=== PATIENT | female | born 1985 | race American Indian/Alaskan Native ===

== ENCOUNTER 2017-02-13 22:14 | Emergency (ER) | payer SELFPAY ==
[2017-02-13 22:20] VITALS: BP 136/87
[2017-02-13] MEDS ORDERED: MOTRIN PO ONE (22:38)
--- NOTE | 2017-02-13 23:15 | Emergency Department Report ---
Upper Extremity - HPI Chief Complaint: Extremity Injury, Upper Stated Complaint: RIGHT HAND PAIN Time Seen by Provider: 02/13/17 23:14 Upper Extremity: Right Hand (pain and swelling), Right Thumb (pain and swelling) Occurred When: Today Mechanism: Fall Severity: severe Symptoms: Yes Pain with Movement (right thumb), Yes Limited Range of Movement ( right thumb), Yes Swelling (right thumb), No Deformity, No Numbness, No Weakness , No Bruising/Ecchymosis, No Laceration or Abrasion Other History: Patient reports that she was at a friend's have any get-together and she accidentally tripped on shoe draining. She says she fell on her right hand and she is having swelling and pain with limited movement to her right thumb. She denies any numbness or tingling. She denies any restriction in movement to other fingers and right hand. Denies any pain radiating from her thumb to her hand and beyond. Denies any head injury, headache, blurred vision. Denies any back or neck pain. ED Review of Systems ROS: Stated complaint: RIGHT HAND PAIN Other details as noted in HPI Comment: All other systems reviewed and negative Constitutional: no symptoms reported ENT: denies: ear pain, throat pain, hearing loss Respiratory: no symptoms reported Cardiovascular: denies: chest pain, palpitations, edema, syncope Gastrointestinal: denies: abdominal pain, nausea, vomiting, diarrhea Musculoskeletal: joint swelling, arthralgia, other (limited movement to right thumb). denies: back pain, myalgia Skin: denies: rash Neurological: denies: headache, weakness, numbness, paresthesias, confusion, abnormal gait, vertigo ED Past Medical Hx - Past Medical History Previous Medical History?: No Hx Psychiatric Treatment: Yes - Surgical History Past Surgical History?: Yes Hx Cholecystectomy: Yes Additional Surgical History: right shoulder - Family History Family history: no significant - Social History Smoking Status: Never Smoker Substance Use Type: None, Alcohol - Medications Home Medications: Home Medications Medication Instructions Recorded Confirmed Last Taken Type Acetaminophen/Codeine [Tylenol 1 tab PO Q6H PRN 3 Days #12 tab 02/14/17 Unknown Rx /Codeine # 3 tab] Ibuprofen [Motrin] 600 mg PO Q8H PRN 5 Days #15 tablet 02/14/17 Unknown Rx Upper Extremity Exam - Exam General: Vital signs noted. No distress. Alert and acting appropriately. This is a 31-year-old female well-nourished well-developed in no acute distress. Patient is nontoxic in appearance. Head and Torso: Yes HEENT Abnormality (normal exam), Yes Neck Tenderness ( normal exam), Yes Chest/Lungs Abnormality (normal exam), Yes Abdominal Tenderness (normal exam), Yes Back Tenderness (normal inspection, no vertebral or paraspinal tenderness. Patient able to ambulate without any difficulties) Shoulder Exam: Yes Shoulder Tenderness, Yes Normal Range of Motion in Shoulder, No Clavicle Tenderness, No Shoulder Deformity, No AC Joint Tenderness Arm Exam: No Arm/Humerus Tenderness, No Arm Deformity Elbow: Yes Normal Range of Motion in Elbow, No Elbow Tenderness, No Elbow Deformity Forearm: No Forearm Tenderness, No Forearm Deformity, No Pain with Pronation, No Pain with Supination Wrist: Yes Normal ROM in Wrist, Yes Pain with Axial Thumb Compression (right thumb), No Wrist Tenderness, No Wrist Deformity, No Snuffbox Tenderness Hand: Yes Hand Tenderness (right mid to proximal thumb), Yes Digit Tenderness ( right mid to proximal thumb), No Hand Deformity, No Normal ROM in Digit(s) (is limited range of motion to right thumb. She is able to move all fingers of without any pain but complains of pain with movement to right thumb.), No Digit( s) Deformity, No Tendon Dysfunction (no signs of tendon injury.) CMS Exam: Yes Normal Distal Pulses, Yes Normal Capillary Refill, Yes Normal Distal Sensation, No Broken Skin ED Course Vital Signs 02/13/17 02/13/17 22:17 22:53 Temperature 98.6 F Pulse Rate 108 H Respiratory 20 18 Rate Blood Pressure 136/87 O2 Sat by Pulse 99 Oximetry Vital Signs 02/13/17 02/13/17 02/14/17 22:17 22:53 00:29 Temperature 98.6 F Pulse Rate 108 H Respiratory 20 18 18 Rate Blood Pressure 136/87 O2 Sat by Pulse 99 Oximetry Vital Signs 02/13/17 02/13/17 02/14/17 22:17 22:53 00:29 Temperature 98.6 F Pulse Rate 108 H Respiratory 20 18 18 Rate Blood Pressure 136/87 O2 Sat by Pulse 99 Oximetry 02/14/17 00:40 Temperature Pulse Rate 92 H Respiratory Rate Blood Pressure O2 Sat by Pulse Oximetry - Reevaluation(s) Reevaluation #1: 11/19/17 01:01 Patient given Motrin 800 mg iinitially but she said it didn't help her pain. He was given an additional 5/325 mg 2 tablets by mouth. Which helped her pain. Patient with obvious soft tissue swelling to right thumb. This is noted on exam with severe pain with movement of thumb and with palpation. She does not have any bony abnormality that I can see. Attending physicians in emergency room reviewed x-ray of the hand 3 views soft tissue swelling was noted but radiology reports no bony abnormality to include fracture or dislocation and no soft tissue swelling. I called [facility] to ask that the radiologist do a reread on x-ray of the right hand [address] Faye. He reported in his addend them that x-ray of right hand normal without any bony abnormality to include fracture or dislocation and no soft tissue swelling. Patient with significant pain to right thumb, limited movement and obvious swelling. Reevaluation #2: 02/14/17 01:05 Patient's to have thumb spica and this was discussed with Dr. Ho and referred to Dr. Garcia for evaluation. See procedure note for details. As discussed patient and she agrees. Told her that she needs to keep thumb spica on and so she see orthopedic doctor for evaluation. - Orthopedic Splinting/Casting Injury #1 Side: right Upper Extremity Injury Location: hand, finger (right thumb) Upper Extremity Immobilizer: thumb spica Additional Comments: Patient with good color, sensation, temperature status post thumb spica placement. She said her pain is better ED Medical Decision Making - Radiology Data Radiology results: report reviewed X-ray of right hand reveal a normal study. Radiologist report no fracture or dislocation. Also report joint spaces appear normal. Reports that soft tissues are unremarkable. Addendum also suggests similar findings. - Medical Decision Making ED course: Patient status post ground-level fall which she said was accidental and injured her right thumb. She is complaining of severe pain to right femoral limited movement. Physical findings for swelling to mid to proximal right thumb with limitation in movement. She has normal sensation. Pulses are 2+ and bounding. All other extremities are normal. Patient with significant pain with palpation. X-ray 3 view of right hand revealed no fracture, no dislocation and no soft tissue swelling. Radiology interprets x-ray as normal study. Soft tissue swelling seen on x-ray of right hand on the thumb side. The attending physicians in the emergency room reviewed x-ray and it was agreed upon that the patient does have soft tissue swelling. I called and asked for a reread on x-ray and addendum report normal study and similar findings. Patient was given Motrin 600 mg for pain which didn't help her. She was given [place] 5/ 325 2 tablets by mouth which helped her pain. Patient with thumb spica to right hand with good post-splint neurological check. It was decided by attending physician that patient should have thumb spica and follow-up with Dr. Garcia was orthopedic doctor. It was explained to patient in detail that she should keep splint on until she is seen by orthopedic doctor. Patient will be discharged home on pain medication. I explained Rice protocol to her. Patient discharged home with family members in stable condition with prescription for Tylenol 3, Motrin and to follow-up with Dr. Garcia on 01/15/2017. He was understanding the discharge instructions, diagnoses and treatment plan. Critical care attestation.: If time is entered above; I have spent that time in minutes in the direct care of this critically ill patient, excluding procedure time. ED Disposition Clinical Impression: Fall from ground level, Pain of right thumb Contusion of right thumb Qualifiers: Encounter type: initial encounter Damage to nail status: without damage Qualified Code(s): S60.011A - Contusion of right thumb without damage to nail, initial encounter Disposition: DC-01 TO HOME OR SELFCARE Is pt being admited?: No Does the pt Need Aspirin: No Condition: Stable Instructions: Finger Sprain (ED), Splint Care (ED), Fall Prevention (ED), Contusion in Adults (ED), RICE Therapy (ED) Additional Instructions: Take medication as prescribed . please do not drive or operate heavy machinery while taking Tylenol No. 3 as this medication causes drowsiness. Referred to discharge instruction on splint care. Referred to discharge instruction in Rice therapy. Reason me almost splint until he is seen by orthopedic doctor These follow-up with orthopedic doctor as instructed. Please keep affected area clean and dry Prescriptions: Acetaminophen/Codeine [Tylenol /Codeine # 3 tab] 1 tab PO Q6H PRN 3 Days #12 tab PRN Reason: Pain, Moderate (4-6) Ibuprofen [Motrin] 600 mg PO Q8H PRN 5 Days #15 tablet PRN Reason: Pain Referrals: LI GARCIA MD [Staff Physician] - 02/15/17 Forms: Work/School Release Form(ED)
--- NOTE | 2017-02-13 23:37 | XRay Report ---
FINAL REPORT PROCEDURE: Right hand. TECHNIQUE: Three views. HISTORY: Fall, right hand injury. COMPARISON: No prior studies are available for comparison. FINDINGS: The bones appear intact without fracture or dislocation. The joint spaces appear normal. The soft tissues are unremarkable. IMPRESSION: Normal study.
[2017-02-14] MEDS ORDERED: NORCO 5/325 ONE (00:07)
[2017-02-14] MEDS ORDERED: NORCO 5/325 PO ONE (00:10)
== END 2017-02-14 01:40 | disposition home or self-care (01) ==
LOC: ED 22:14
DX: S60.011A Contusion of right thumb without damage to nail, initial encounter (principal); Z90.49 Acquired absence of other specified parts of digestive tract; W01.0XXA Fall on same level from slipping, tripping and stumbling without subsequent striking against object, initial encounter; Y93.89 Activity, other specified; Y99.8 Other external cause status; Y92.89 Other specified places as the place of occurrence of the external cause